=== PATIENT | female | born 1995 | race Caucasian/White ===

== ENCOUNTER 2021-11-08 21:02 | Emergency (ER) | payer BC, MEDICAID ==
[2021-11-08] MEDS ORDERED: Bacitracin/Neomycin/Polymyxin B Oint 0.9 GM U/D Packet TOP ONE (21:33)
[2021-11-08] MEDS ORDERED: Amoxicillin/Clavulanate K 875-125 MG Tab PO ONE (21:33)
[2021-11-08] MEDS ORDERED: Diphtheria,Pertussis(Acell),Tetanus Vaccine 0.5 ML Syringe IM ONE (22:28)
[2021-11-08] MEDS: Lidocaine 1% 5 ML VIAL INJECT ONE (22:45)
== END 2021-11-08 22:56 | disposition home or self-care (01) ==
LOC: LL.ED 21:02
DX: S61.254A Open bite of right ring finger without damage to nail, initial encounter (principal); Z23 Encounter for immunization; W54.0XXA Bitten by dog, initial encounter
CPT/HCPCS: 12001; 90471; 90715; 99283; A9270